=== PATIENT | female | born 1995 | race American Indian/Alaskan Native ===

== ENCOUNTER 2019-02-11 09:26 | Outpatient (CLI) | payer MEDICAID ==
[2019-02-11 10:20] VITALS: BP 129/61
[2019-02-11 10:37] LABS: Bacteria,Urine 1+ /HPF (Negative); Bilirubin,Urine NEG (Negative); Blood,Urine SM (Negative); Color,Urine Yellow (Yellow); Mucus,Urine FEW /HPF; Protein,Urine <15 mg/dL mg/dL (Negative); Urobilinogen,Urine < 2.0 mg/dL (<2.0)
== END 2019-02-11 11:23 | disposition home or self-care (01) ==
LOC: TRG 09:26
PROVIDERS: ATTEND Obstetrics & Gynecology
DX: O47.02 False labor before 37 completed weeks of gestation, second trimester (principal); Z3A.26 26 weeks gestation of pregnancy
CPT/HCPCS: 81001; 87086

== ENCOUNTER 2019-03-13 13:10 | Outpatient (CLI) | payer MEDICAID ==
[2019-03-13] MEDS ORDERED: LACTATED RINGERS 500 ML IV ONE (14:55)
[2019-03-13 15:36] LABS: Basophils % (Auto) 0.2 % (0.0-1.8); Eosinophils # (Auto) 0.1 K/mm3 (0.0-0.4); Eosinophils % (Auto) 1.1 % (0.0-4.3); Hematocrit 29.5 % (30.3-42.9); Hemoglobin 10.2 gm/dl (10.1-14.3); Lymphocytes # (Auto) 0.8 K/mm3 (1.2-5.4); Lymphocytes % (Auto) 12.3 % (13.4-35.0); Mean Corpuscular HGB Conc 35 % (30-34); Mean Corpuscular Volume 97 fl (79-97); Monocytes # (Auto) 0.4 K/mm3 (0.0-0.8); Monocytes % (Auto) 6.3 % (0.0-7.3); Platelet Count 265 K/mm3 (140-440); Red Blood Count 3.06 M/mm3 (3.65-5.03); Red Cell Distribution Width 13.6 % (13.2-15.2)
[2019-03-13 15:56] VITALS: BP 141/72
[2019-03-13 16:56] LABS: Bacteria,Urine 1+ /HPF (Negative); Bilirubin,Urine NEG (Negative); Blood,Urine NEG (Negative); Color,Urine Yellow (Yellow); Mucus,Urine FEW /HPF; Urobilinogen,Urine < 2.0 mg/dL (<2.0)
[2019-03-13] MEDS ORDERED: TYLENOL PO ONE (18:00)
== END 2019-03-13 17:45 | disposition home or self-care (01) ==
LOC: TRG 13:10 → LD 13:11 → TRG 17:45
PROVIDERS: ATTEND Obstetrics & Gynecology
DX: O26.893 Other specified pregnancy related conditions, third trimester (principal); R10.31 Right lower quadrant pain; J00 Acute nasopharyngitis [common cold]; R05 Cough; O47.03 False labor before 37 completed weeks of gestation, third trimester; O99.333 Smoking (tobacco) complicating pregnancy, third trimester; F17.200 Nicotine dependence, unspecified, uncomplicated; Z3A.30 30 weeks gestation of pregnancy
CPT/HCPCS: 36415; 59025; 81001; 85025; J7120; 96360; 96361

== ENCOUNTER 2019-03-15 20:40 | Outpatient (CLI) | payer MEDICAID ==
[2019-03-15] MEDS ORDERED: LACTATED RINGERS 1,000 ML IV ONE (21:19)
[2019-03-15] MEDS ORDERED: LACTATED RINGERS ONE (21:30)
[2019-03-15 22:30] LABS: Bilirubin,Urine NEG (Negative); Blood,Urine NEG (Negative); Color,Urine Yellow (Yellow); Mucus,Urine 1+ /HPF; Urobilinogen,Urine < 2.0 mg/dL (<2.0)
--- NOTE | 2019-03-15 22:33 | Ultrasound Report ---
PROCEDURE: US OB >= 14 WEEKS FETUS TECHNIQUE: Ultrasound obstetrical transabdominal HISTORY: premature rupture of [place] COMPARISONS: FINDINGS: Single live intrauterine gestation present in cephalic presentation Amniotic fluid index is within normal limits 11.4 cm Placenta is anterior cardiac activity present with heart rate of 1 27 bpm Cervical length is 3.6 cm structures seen and appear grossly unremarkable, stomach, kidneys, urinary bladder, diaphragm, four-chamber view of the heart, three-vessel cord, visualized portions of the spine. brain insu fficiently seen biometric measurements were obtained Biparietal diameter 20 weeks 6 days Head circumference 28 weeks 2 days Abdominal circumference 27 weeks 3 days Femur length 28 weeks 1 day Based on today's exam estimated composite gestational age is 28 weeks 1 day with estimated date of June 06, 2019 Estimated weight is 1131 g IMPRESSION: Single live intrauterine gestation estimated at. 28 weeks 1 day Amniotic fluid index within normal limits 11.4 cm This document is electronically signed by Sigifredo Peraza MD., March 15 2019 10:32:03 PM ET
[2019-03-15] MEDS ORDERED: ZITHROMAX PO ONE ×2 (23:13→23:50)
[2019-03-15] MEDS ORDERED: TYLENOL PO ONE (23:14)
[2019-03-15 23:45] LABS: Hemoglobin 12.7 gm/dl (10.1-14.3); Mean Corpuscular HGB Conc 34 % (30-34); Mean Corpuscular Volume 96 fl (79-97); Platelet Count 222 K/mm3 (140-440); Red Blood Count 3.84 M/mm3 (3.65-5.03); Red Cell Distribution Width 13.4 % (13.2-15.2)
[2019-03-15 23:56] LABS: Alanine Aminotransferase 17 units/L (7-56); Uric Acid 2.6 mg/dL (3.5-7.6)
[2019-03-16 00:37] VITALS: BP 145/68
== END 2019-03-16 00:59 | disposition home or self-care (01) ==
LOC: TRG 20:40
PROVIDERS: ATTEND Obstetrics & Gynecology
DX: O42.913 Preterm premature rupture of membranes, unspecified as to length of time between rupture and onset of labor, third trimester (principal); O62.9 Abnormality of forces of labor, unspecified; O99.333 Smoking (tobacco) complicating pregnancy, third trimester; F17.200 Nicotine dependence, unspecified, uncomplicated; Z3A.31 31 weeks gestation of pregnancy
CPT/HCPCS: 36415; 59025; 76805; 81001; 82565; 83615; 84450; 84460; 84550; 85027; 96360; J7120

== ENCOUNTER 2022-01-31 22:30 | Emergency (ER) | payer MEDICAID ==
[2022-01-31 23:57] LABS: Basophils % (Auto) 0.2 % (0.0-1.8); Eosinophils % (Auto) 0.5 % (0.0-4.3); Hematocrit 30.3 % (30.3-42.9); Hemoglobin 10.1 gm/dl (10.1-14.3); Lymphocytes # (Auto) 0.8 K/mm3 (1.2-5.4); Lymphocytes % (Auto) 11.4 % (13.4-35.0); Mean Corpuscular HGB Conc 33 % (30-34); Mean Corpuscular Volume 95 fl (79-97); Monocytes # (Auto) 0.5 K/mm3 (0.0-0.8); Platelet Count 257 K/mm3 (140-440); Red Cell Distribution Width 13.2 % (13.2-15.2)
[2022-02-01] MEDS ORDERED: MORPHINE 4 MG/1 ML INJ IV ONE (00:10)
[2022-02-01] MEDS ORDERED: SODIUM CHLORIDE 0.9% 1000 ML 1,000 ML IV ONE (00:10)
--- NOTE | 2022-02-01 00:34 | Emergency Department Report ---
ED Abdominal Pain HPI - General Chief Complaint: Abdominal Pain Stated Complaint: 13 WEEKS PREG/ABDOMINAL PAIN PUI?: No Source: patient, EMS Mode of arrival: Stretcher Limitations: No Limitations - History of Present Illness Initial Comments: Patient is a 26-year-old female presents emergency department complaint of abdominal pain. Patient states that she has had abdominal pain throughout her entire . She states that she is here because her doctor will no longer give her pain medication. They have not caused a reason to her to have pain. She states she has had previous history of high risk pregnancies due to elevated blood pressures and or preeclampsia. She has not had any vaginal bleeding or loss of fluids. Her pain has not changed since the beginning of her . She also states that she had pain prior to but cannot tell me more about this. MD Complaint: abdominal pain - Related Data Allergies Allergy/AdvReac Type Severity Reaction Status Date / Time No Known Allergies Allergy Verified 03/15/19 21:19 ED Review of Systems ROS: Stated complaint: 13 WEEKS PREG/ABDOMINAL PAIN Other details as noted in HPI Constitutional: denies: chills, fever Eyes: denies: eye pain, eye discharge, vision change ENT: denies: ear pain, throat pain Respiratory: denies: cough, shortness of breath, wheezing Cardiovascular: denies: chest pain, palpitations Endocrine: no symptoms reported Gastrointestinal: abdominal pain, nausea, vomiting. denies: diarrhea, constipation Genitourinary: denies: urgency, dysuria, discharge Musculoskeletal: denies: back pain, joint swelling, arthralgia Skin: denies: rash, lesions Neurological: denies: headache, weakness, paresthesias Psychiatric: denies: anxiety, depression Hematological/Lymphatic: denies: easy bleeding, easy bruising ED Past Medical Hx - Past Medical History Previous Medical History?: Yes Hx Hypertension: No Hx Diabetes: No Hx Deep Vein Thrombosis: No Hx Renal Disease: No Hx Sickle Cell Disease: Yes Hx Seizures: No Hx Asthma: No Hx HIV: No - Surgical History Past Surgical History?: No - Social History Smoking Status: Current Every Day Smoker Substance Use Type: None ED Physical Exam - General Limitations: No Limitations General appearance: alert, in no apparent distress - Head Head exam: Present: atraumatic, normocephalic - Eye Eye exam: Present: normal appearance - ENT ENT exam: Present: mucous membranes moist - Neck Neck exam: Present: normal inspection - Respiratory Respiratory exam: Present: normal lung sounds bilaterally. Absent: respiratory distress - Cardiovascular Cardiovascular Exam: Present: regular rate, normal rhythm. Absent: systolic murmur, diastolic murmur, rubs, gallop - GI/Abdominal GI/Abdominal exam: Present: other (Patient is refusing any abdominal exam at th is time.) - Rectal Rectal exam: Present: deferred - Extremities Exam Extremities exam: Present: normal inspection - Back Exam Back exam: Present: normal inspection - Neurological Exam Neurological exam: Present: alert, oriented X3 - Psychiatric Psychiatric exam: Present: normal affect, normal mood - Skin Skin exam: Present: warm, dry, intact, normal color. Absent: rash ED Course Vital Signs 01/31/22 23:10 Temperature 98 F Pulse Rate 100 H Respiratory 18 Rate Blood Pressure 150/84 O2 Sat by Pulse 100 Oximetry ED Medical Decision Making - Lab Data Result diagrams: 01/31/22 23:37 02/01/22 00:38 - Medical Decision Making Patient is a 26-year-old female presented emergency department complaint of a bdominal pain. Patient reports that she is 13 weeks . She states she has had previous ultrasound of her . Her pain has not changed. Given her pain we will plan for an ultrasound of her . I will give pain control and IV fluids as will obtain basic labs. Given patient is refusing any abdominal exam patient will get 1 dose of pain medicine and if her labs and imaging are grossly normal plan for patient to be discharged. Critical care attestation.: If time is entered above; I have spent that time in minutes in the direct care of this critically ill patient, excluding procedure time. ED Disposition Clinical Impression: Abdominal pain affecting Disposition: 01 HOME / SELF CARE / HOMELESS Is pt being admited?: No Does the pt Need Aspirin: No Condition: Stable Instructions: Round Ligament Pain, Abdominal Pain (ED) Additional Instructions: Follow-up with your OB doctor. If your symptoms worsen feel free to return to the emergency department. Time of Disposition: 02:42
[2022-02-01 01:16] LABS: Alanine Aminotransferase 22 units/L (7-56); Albumin 3.7 g/dL (3.9-5); Blood Urea Nitrogen 8 mg/dL (7-17); Calcium 9.1 mg/dL (8.4-10.2); Hemolysis Index 23
[2022-02-01 01:17] LABS: BUN/Creatinine Ratio 16
[2022-02-01 01:18] LABS: Bilirubin,Urine NEG (Negative); Blood,Urine SM (Negative); Color,Urine Yellow (Yellow); Mucus,Urine FEW /HPF; Urobilinogen,Urine < 2.0 mg/dL (<2.0)
--- NOTE | 2022-02-01 01:22 | Ultrasound Report ---
ULTRASOUND OBSTETRIC LIMITED INDICATION / CLINICAL INFORMATION: 13 weeks preg; abdominal pain. Clinical Gestational Age (GA) in weeks, days: 17 weeks 3 days TECHNIQUE: Transabdominal. COMPARISON: None available. FINDINGS: Single live intrauterine . measurements correspond to a gestational age of 1 8 weeks and 4 days. Estimated weight is 283 g. HEART RATE (beats per minute): 153 PRESENTATION: Breech. ADDITIONAL FINDINGS: Posterior placenta is free of the os. Cervix is closed. Cervical os measures 3.3 cm. IMPRESSION: Single live intrauterine with ultrasound age of 18 weeks and 4 days. No significant abnorma lity. Signer Name: Sergio Martinez MD Signed: 02/01/2022 1:18 AM Workstation Name: [id number]
[2022-02-01 05:32] VITALS: BP 124/78
== END 2022-02-01 03:00 | disposition home or self-care (01) ==
LOC: ED 22:30
DX: O26.891 Other specified pregnancy related conditions, first trimester (principal); R10.9 Unspecified abdominal pain; Z3A.13 13 weeks gestation of pregnancy; N28.9 Disorder of kidney and ureter, unspecified; F17.200 Nicotine dependence, unspecified, uncomplicated
CPT/HCPCS: 36415; 76805; 80053; 81001; 84702; 85025; 96361; 96374; 99284; J2270; J7030; 76801